=== PATIENT | female | born 1960 | race African-American/Black ===

== ENCOUNTER 2022-06-10 10:35 | Emergency (ER) | payer BC ==
[~2022-06-10] VITALS: Ht 160 cm; Wt 82.0 kg
[2022-06-10 10:46] VITALS: BP 148/90
== END 2022-06-10 17:35 | disposition left against medical advice (07) ==
LOC: ER 10:58
DX: Z53.21 Procedure and treatment not carried out due to patient leaving prior to being seen by health care provider (principal); I49.9 Cardiac arrhythmia, unspecified
CPT/HCPCS: 93005

== ENCOUNTER 2023-08-29 12:12 | Emergency (ER) | payer BC ==
[~2023-08-29] VITALS: Ht 165.1 cm; Wt 65.0 kg
[2023-08-29 12:19] VITALS: O2SAT 100
[2023-08-29 12:54] LABS: HEMATOCRIT. 42.2 % (36.0-48.0); HEMOGLOBIN. 14.4 g/dL (12.0-16.0); MEAN CORPUSCULAR HEMOGLOBIN 30.5 pg (28.0-32.0); MEAN CORPUSCULAR VOLUME 89.7 fL (81.0-99.0); MEAN PLATELET VOLUME 7.6 fl (7.4-10.4); PLATELET 251 x1000/uL (130-400); RED BLOOD CELL COUNT 4.71 mill/uL (4.2-5.4); RED CELL DISTRIBUTION WIDTH 13.9 % (11.6-14.6); WHITE BLOOD COUNT 5.7 x1000/uL (4.5-11.0)
[2023-08-29 12:59] LABS: CHLORIDE 106 mEq/L (98-107); POTASSIUM 4.1 mEq/L (3.5-5.1); SODIUM 139 mEq/L (136-145)
[2023-08-29 13:00] LABS: CARBON DIOXIDE 28 mEq/L (21-32)
[2023-08-29 13:01] LABS: CALCIUM 9.9 mg/dL (8.7-10.4)
[2023-08-29 13:05] LABS: CREATININE 0.9 mg/dL (0.6-1.0)
[2023-08-29 13:06] LABS: GLUCOSE 111 mg/dL (70-105); UREA NITROGEN BLOOD 14 mg/dL (9-23)
[2023-08-29 13:26] LABS: TROPONIN I HIGH SENSITIVITY < 4 ng/L (3.0-34)
[2023-08-29] MEDS: KETOROLAC 30MG/ML VIAL IV STA (14:03)
[2023-08-29] MEDS: METOCLOPRAMIDE HCL 10MG/2ML VIAL IV ONE (14:04)
[2023-08-29] MEDS: SODIUM CHLORIDE 0.9% 1,000 ML IV ONE (14:04)
[2023-08-29] MEDS: DIPHENHYDRAMINE 50MG/ML VIAL IV ONE (14:04)
[2023-08-29 15:55] VITALS: BP 124/84; PULSE 72; RESP 16; TEMP 97.5
[2023-08-29 16:31] LABS: PLATELET ESTIMATE NORMAL
== END 2023-08-29 15:56 | disposition home or self-care (01) ==
LOC: ER 12:57
DX: G43.809 Other migraine, not intractable, without status migrainosus (principal); Z90.49 Acquired absence of other specified parts of digestive tract; Z90.710 Acquired absence of both cervix and uterus; Z88.0 Allergy status to penicillin; Z88.6 Allergy status to analgesic agent; Z88.5 Allergy status to narcotic agent
CPT/HCPCS: 80048; 85025; 84484; 36415; 93005; 96361; 96374; 96375; 99284; J1200; J1885; J2765; J7030; Z7610 ×2